=== PATIENT | female | born 2000 | race Caucasian/White ===

== ENCOUNTER 2024-01-25 14:00 | Emergency (ER) | payer MEDICAID ==
[~2024-01-25] VITALS: Ht 152.4 cm; Wt 98.4 kg
[2024-01-25 14:18] VITALS: BP 121/61; PULSE 75; RESP 20; TEMP 98.2; O2SAT 98
[2024-01-25 15:28] LABS: BASOPHILS # (AUTO) 0.1 K/uL (0.00-0.22); BASOPHILS % (AUTO) 0.9 % (0.0-2.0); EOSINOPHILS # (AUTO) 0.2 K/uL (0-0.4); EOSINOPHILS % (AUTO) 2.4 % (0.0-4.0); HEMATOCRIT 35.5 % (36-48); HEMOGLOBIN 11.9 g/dL (12.0-16.0); LYMPHOCYTES # (AUTO) 2.5 K/uL (2.5-16.5); LYMPHOCYTES % (AUTO) 30.4 % (20.5-51.1); MEAN CORPUSCULAR HEMOGLOBIN 28 pg (27-31); MEAN CORPUSCULAR HGB CONC 34 g/dL (33-37); MEAN CORPUSCULAR VOLUME 83.3 fL (80-94); MONOCYTES # (AUTO) 0.5 K/uL (0.8-1.0); MONOCYTES % (AUTO) 6.4 % (1.7-9.3); NEUTROPHILS # (AUTO) 4.9 K/uL (1.8-7.7); NEUTROPHILS % (AUTO) 59.9 % (42.2-75.2); PLATELET COUNT (AUTO) 243 K/uL (140-450); RED BLOOD CELL COUNT(AUTO) 4.26 MIL/uL (4.20-5.40); WHITE BLOOD COUNT (AUTO) 8.2 K/uL (4.8-10.8)
[2024-01-25] MEDS: NACL 0.9% 1,000 ML IV SCH (15:42)
[2024-01-25 15:48] LABS: ALBUMIN 3.2 g/dL (3.4-5.0); BILIRUBIN,DIRECT 0.1 mg/dL (0.0-0.3); TOTAL BILIRUBIN 0.5 mg/dL (0.0-1.0)
[2024-01-25 16:03] LABS: ANION GAP 9.6 (8-16); CALCIUM 8.5 mg/dL (8.5-10.1); CARBON DIOXIDE 28.5 mmol/L (21-32); CREATININE 0.7 mg/dL (0.6-1.3); POTASSIUM 4.1 mmol/L (3.5-5.1)
[2024-01-25] MEDS: ONDANSETRON 4 MG/2 ML VIAL IVP ONE (17:23)
[2024-01-25] MEDS: KETOROLAC 30 MG/ML VIAL IVP ONE (17:23)
[2024-01-25] MEDS ORDERED: ONDA-188 SL (17:33)
[2024-01-25 18:32] VITALS: BP 121/61; PULSE 75; RESP 20; TEMP 98.2; O2SAT 98
== END 2024-01-25 18:34 | disposition home or self-care (01) ==
LOC: MED 14:00
DX: R10.9 Unspecified abdominal pain (principal); R11.2 Nausea with vomiting, unspecified; J45.909 Unspecified asthma, uncomplicated; Z90.49 Acquired absence of other specified parts of digestive tract; Z98.890 Other specified postprocedural states; Z79.1 Long term (current) use of non-steroidal anti-inflammatories (NSAID)
CPT/HCPCS: 36415; 74177; 80048; 80076; 81025; 83690; 85025; 96361; 96374; 96375; 99285; J1885; J2405; J7030; Q9967

== ENCOUNTER 2024-05-14 19:28 | Emergency (ER) | payer MEDICAID ==
[~2024-05-14] VITALS: Ht 152.4 cm; Wt 97.5 kg
[~2024-05-14 19:28] MED LIST: ONDA-188 SL
[2024-05-14 19:36] VITALS: BP 129/62; PULSE 107; RESP 16; TEMP 98.4; O2SAT 29
[2024-05-14] MEDS: KETOROLAC 60 MG/2 ML VIAL IM ONE (20:41)
[2024-05-14 20:49] LABS: APPEARANCE,URINE CLOUDY (CLEAR); BILIRUBIN,URINE NEGATIVE (NEGATIVE); BLOOD, URINE 3+ (NEGATIVE); LEUKOCYTE ESTERASE ,URINE 2+ (NEGATIVE); NITRITE, URINE POSITIVE (NEGATIVE); PROTEIN,URINE 1+ (NEGATIVE); UGLUCOSE NEGATIVE (NEGATIVE); UROBILINOGEN,URINE 0.2 EU/dL (0.2 - 1)
[2024-05-14 21:01] LABS: BACTERIA,URINE 10-30 (MOD) /HPF (None Seen); COLOR,URINE AMBER (YELLOW); MUCUS,URINE 1+ /LPF (None Seen); RBC,URINE 11-20 (MOD) /HPF (0-5); SQUAMOUS EPITHELIAL CELL,UR 4-10 (MOD) /LPF (0-3 (FEW)); WBC,URINE 16-25 (MOD) /HPF (0-5)
[2024-05-14] MEDS ORDERED: LIDOCAINE MPF 1% 5 ML ONE (22:28)
[2024-05-14] MEDS ORDERED: cefTRIAXone 1,000 MG VIAL ONE (22:28)
[2024-05-14] MEDS: cefTRIAXone 1,000 MG in LIDOCAINE MPF 1% 2.1 ML IM ONE (22:29)
[2024-05-14] MEDS ORDERED: CIPR500T4 PO (22:40)
== END 2024-05-14 22:43 | disposition home or self-care (01) ==
LOC: MED 19:28
DX: N39.0 Urinary tract infection, site not specified (principal); J45.909 Unspecified asthma, uncomplicated; Z90.49 Acquired absence of other specified parts of digestive tract; Z98.890 Other specified postprocedural states; Z79.899 Other long term (current) drug therapy
CPT/HCPCS: 81001; 87086; 87186; 96372; 99284; J0696; J1885; J2001